=== PATIENT | female | born 1970 | race Caucasian/White ===

== ENCOUNTER 2020-10-22 10:09 | Emergency (ER) | payer BC, SELFPAY ==
[2020-10-22 10:19] VITALS: BP 132/85; PULSE 108; RESP 16; TEMP 37.1; O2SAT 98
[2020-10-22 10:22] VITALS: BP 132/85; PULSE 108; RESP 16; TEMP 37.1; O2SAT 98
--- NOTE | 2020-10-22 10:28 | ED.SOB ---
HPI - SOB/Dyspnea General Chief Complaint: Shortness of Breath/Dyspnea Stated Complaint: difficult breathing Source: patient and RN notes reviewed Limitations: no limitations History of Present Illness HPI Narrative: The overweight unvaccinated patient, a non-smoker/nondrinker with a history of RAD, presents with shortness of breath. Patient states she has about 1/2-week, 3-day history of increasing asthma symptoms. She reports her baseline inhaler use is about once a month now she has been using it daily-as it sometimes worsens on a seasonal/yearly basis. No fever, sputum changes, loss of taste/smell, CP, vomiting/diarrhea, rash, calf pain/edema, nor noncompliance [reports she is on Symbicort, albuterol-not DuoNeb]. Her last steroids were about a year ago, and she is never been hospitalized for this. She has no known recent chest x-ray, patient requests refill of nebulizers. Related Data Home Medications Medication Instructions Recorded Confirmed amlodipine 10/22/20 budesonide-formoterol [Symbicort] INHALATION 10/22/20 bupropion HCl mg PO 10/22/20 ergocalciferol (vitamin D2) 10/22/20 escitalopram oxalate mg 10/22/20 hydrochlorothiazide 10/22/20 ipratropium-albuterol [Combivent INHALATION 10/22/20 Respimat] levocetirizine mg 10/22/20 losartan 10/22/20 montelukast mg 10/22/20 omeprazole 10/22/20 Allergies Allergy/AdvReac Type Severity Reaction Status Date / Time Sulfa (Sulfonamide Allergy Unknown Verified 08/20/10 09:21 Antibiotics) sulfamethoxazole Allergy Unknown RASH Verified 02/03/19 18:16 ADHESIVE BANDAGE Allergy Severe BANDAIDS= Uncoded 02/03/19 18:16 SKIN BLISTERS OPIOIDS AdvReac Intermediate VOMITING Uncoded 06/09/18 12:34 Review of Systems Review of Systems: Narrative: General/Constitutional: No weight loss,fever Eyes: N0: Redness,discharge Ears/Nose/Throat: No: Epistaxis,ear discharge Respiratory: Denies: Hemoptysis Gastrointestinal: No Vomiting, Bleeding-rectal Skin: No Lumps, eruption Neurologic: No Focal Weakness,Sz Hematologic: Denies: Petechiae/Purpura Psychiatric: No: Suicida ideationl All Other Systems: Reviewed and Negative [facility] Family History Family History (Updated 12/22/15 @ 23:19 by DOCTOR UNKNOWN) Mother Family history of bipolar disorder Family history of diabetes mellitus in first degree relative Father Hypertension Social History Social History Smoking end date: 05/26/88 Alcohol intake: never Comments At time of signature, agree with nursing past medical, surgical, social and family history. There is no relevant family history pertinent to the presenting complaint Exam Narrative: Exam Narrative: General Appearance: Well appearing, No distress EYE: PERRLA, Conjunctiva clear Ears: External ear normal Nose: Normal nose Mouth/Throat: Normal appearing, Normal lips Neck: Supple Respiratory: Airway patent, No respiratory distress, mild decreased BS at bases with fine expiratory wheeze- only on forced expiration Cardiovascular: RRR Abdomen: Soft, Non-tender, No massess, No organomegaly Musculoskeletal: Full ROM Skin: Warm, Dry Neurological: A&O x3, CN II-X intact Psychiatric: Normal mood, Normal affect Course Vital Signs Vital signs: Vital Signs Temperature 98.7 F 10/22/20 10:19 Pulse Rate 108 H 10/22/20 10:19 Respiratory Rate 16 10/22/20 10:19 Blood Pressure 132/85 10/22/20 10:19 Pulse Oximetry 98 10/22/20 10:19 Temperature 98.7 F 10/22/20 10:22 Pulse Rate 108 H 10/22/20 10:22 Respiratory Rate 16 10/22/20 10:22 Blood Pressure 132/85 10/22/20 10:22 Pulse Oximetry 98 10/22/20 10:22 MDM - SOB/Dyspnea Lab Data Labs: Lab Results 10/22/20 Range/Units 10:25 POC SARS CoV-2 Ag Negative (Negative) Discharge Plan Discharge Clinical Impression: Asthma exacerbation Qualifiers: Asthma severity: mild Asthma persistence: intermittent Qualified Code(s): Martín
[2020-10-22] MEDS: predniSONE 20 MG TABLET 80 MG PO (10:36)
== END 2020-10-22 10:46 | disposition home or self-care (01) ==
PROVIDERS: Emergency Provider Emergency Medicine; PCP Physician Assistant
DX: J45.21 Mild intermittent asthma with (acute) exacerbation (principal); Z20.822 Contact with and (suspected) exposure to COVID-19; I10 Essential (primary) hypertension; K21.9 Gastro-esophageal reflux disease without esophagitis; M19.90 Unspecified osteoarthritis, unspecified site
CPT/HCPCS: 87426; 99213; C9803; G0463; J7512

== ENCOUNTER 2020-11-29 11:00 | Outpatient (CLI) | payer BC, SELFPAY ==
[2020-11-29 11:48] LABS: Basophils Absolute Auto 0.1 K/mm3 (0.0-0.1); Basophils Percent Auto 0.7 % (0.2-1.2); Eosinophils Absolute Auto 0.2 K/mm3 (0-0.3); Eosinophils Percent Auto 2.5 % (0-4.4); Hematocrit 36.7 % (37.0-47.0); Hemoglobin 11.4 g/dL (12.0-15.0); Immature Granulocyte Absolute 0.05 K/mm3 (0.00-0.031); Immature Granulocyte Percent A 0.6 % (0-0.5); Lymphocytes Absolute Auto 1.79 K/mm3 (0.9-3.2); Mean Corpuscular HGB Conc 31.1 g/dl (32-36); Mean Corpuscular Hemoglobin 27.5 pg (26-34); Mean Corpuscular Volume 88.4 fl (80-100); Mean Platelet Volume 9.3 fl (7.4-10.4); Monocytes Absolute Auto 0.7 K/mm3 (0.1-0.6); Monocytes Percent Auto 7.9 % (2.6-8.5); Neutrophils Absolute Auto 6.1 K/mm3 (1.3-6.7); Neutrophils Percent Auto 68.3 % (45.5-73.1); Platelet Count Result 419 k/mm3 (150-375); Red Blood Count 4.15 M/mm3 (4.2-5.4); Red Cell Distribution Width 17.4 % (11.5-14.5); White Blood Count 8.9 K/mm3 (4.5-10.0)
[2020-11-29 11:49] LABS: Add Urine Microscopic? NO; Appearance Urine Clear (Clear); Bilirubin Urine Negative (Negative); Blood Urine Negative (Negative); Color Urine Yellow (Yellow); Glucose Urine UA Negative (Negative); Ketones Urine Negative (Negative); Leukocyte Esterase Ur Negative LEU/UL (Negative); Nitrate Urine Negative (Negative); Protein Urine Negative (Negative); Specific Grav Ur 1.013 (1.001-1.035); Urobilinogen Urine Negative mg/dL (<2.0)
[2020-11-29 12:00] LABS: Hemoglobin A1C 5.6 % (<5.7)
[2020-11-29 12:02] LABS: Rheumatoid Factor < 8.6 IU/ML (<12)
[2020-11-29 12:03] LABS: Alanine Aminotransferase 19 U/L (4-35); Albumin Level 4.4 g/dL (3.5-5.1); Alkaline Phosphatase 84 U/L (38-126); Anion Gap 10 mmol/L (8-16); Aspartate Amino Transferase 32 U/L (14-36); Bilirubin,Total 0.4 mg/dL (0.2-1.3); Blood Urea Nitrogen 9 mg/dL (7-17); CRP 0.8 mg/dL (<1.0); Calcium 9.4 mg/dL (8.4-10.2); Carbon Dioxide 26 mmol/L (22-30); Chloride 103 mmol/L (98-107); Cholesterol 168 mg/dL (0-200); Estimated Glomerular Filt Rate > 60; Glucose 112 mg/dL (65-105); HDL Direct 69 mg/dL; Sodium 139 mmol/L (137-145); Triglycerides 93 mg/dL (<150)
[2020-11-29 12:12] LABS: LDL Cholesterol Direct 57 mg/dL
[2020-11-29 13:06] LABS: Free T4 Free Thyroxine 0.85 ng/mL (0.78-2.19)
[2020-11-29 13:20] LABS: Erythrocyte Sedimentation Rate 24 mm/hr (0-20)
== END 2020-11-29 11:01 | disposition home or self-care (01) ==
PROVIDERS: PCP Physician Assistant; Visit Provider Physician Assistant
DX: Z79.899 Other long term (current) drug therapy (principal); Z13.220 Encounter for screening for lipoid disorders; Z13.1 Encounter for screening for diabetes mellitus
CPT/HCPCS: 36415; 80053; 80061; 81003; 83036; 84439; 84443; 85025; 85652; 86140; 86430

== ENCOUNTER 2021-08-07 11:11 | Outpatient (CLI) | payer BC, MEDICAID, SELFPAY ==
--- NOTE | ~2021-08-07 | XR_ITS ---
EXAMINATION: XR chest 2V 08/07/2021 11:47 INDICATION: Cough. Asthma. Shortness of breath. PROCEDURE: 2 view chest COMPARISON: No prior studies for comparison. FINDINGS: The lungs are clear. The cardiomediastinal silhouette is within normal limits. There are no pleural effusions. There is no pneumothorax suspected. IMPRESSION: 1: NO ACUTE CARDIOPULMONARY DISEASE. Reviewed, dictated and finalized at location B.
== END 2021-08-07 11:12 | disposition home or self-care (01) ==
LOC: ANHIMG 11:15
PROVIDERS: PCP Physician Assistant; Visit Provider Physician Assistant
DX: R05.9 Cough, unspecified (principal)
CPT/HCPCS: 71046

== ENCOUNTER 2021-09-18 01:16 | Emergency (ER) | payer BC, MEDICAID, SELFPAY ==
--- NOTE | ~2021-09-18 | XR_ITS ---
EXAMINATION: XR chest 2V DATE: 09/18/2021 02:19 INDICATION: Foreign body ingestion. TECHNIQUE: Frontal and lateral views of the chest were obtained. COMPARISON: None. FINDINGS: The chest demonstrates clear lungs without pneumonia, pleural effusion, or pneumothorax. Th e heart size is normal. Surgical clips in the right upper quadrant are likely from cholecystectomy. IMPRESSION: 1. No acute cardiopulmonary disease. Reviewed, dictated and finalized at location A.
--- NOTE | ~2021-09-18 | XR_ITS ---
EXAMINATION: XR soft tissue neck DATE: 09/18/2021 02:16 INDICATION: Foreign body sensation. TECHNIQUE: 2 views of the neck soft tissues were obtained. COMPARISON: None. FINDINGS: The adenoids, palatine tonsils, epiglottis, prevertebral soft tissues, and airway are johnny l. No radiopaque foreign body. IMPRESSION: 1. No radiopaque foreign body. Reviewed, dictated and finalized at location A.
--- NOTE | ~2021-09-18 | CT_ITS ---
EXAMINATION: CT soft tissue neck wo con DATE: 09/18/2021 02:45 INDICATION: Foreign body ingestion. TECHNIQUE: Computed tomography (CT) of the neck was performed without intravenous contrast. Automated exposure control and iterative reconstruction technique were employed. The dose-length product was 5 39.87 mGy-cm. COMPARISON: Neck radiographs 09/18/2021 FINDINGS: There are no pathologically enlarged lymph nodes. The paranasal sinuses are clear. The mast oid air cells are normal. There is moderate cervical spondylosis. IMPRESSION: 1. No radiopaque foreign body. Reviewed, dictated and finalized at location A.
[2021-09-18 01:19] VITALS: BP 163/79; PULSE 92; RESP 18; TEMP 36.7; O2SAT 100
[2021-09-18 01:47] VITALS: BP 131/90; PULSE 83; RESP 18; O2SAT 97
--- NOTE | 2021-09-18 01:53 | ED.GENADULT ---
HPI - General Adult General Chief complaint: Unspecified Stated complaint: Swallowed a soda tab Time Seen by Provider: 09/18/21 01:48 Source: patient Mode of arrival: ambulatory Limitations: no limitations History of Present Illness HPI narrative: Pt swallowed tab from soda can inadvertently about 8 pm tonight. Pt says it feels like it is stuck in her throat and is now more sharp and painful than it was after she tried eating a banana and it felt like it moved. Location: neck Radiation: non-radiation Severity: moderate Quality: sharp Pain Consistency: constant Relieving factors: none Exacerbating factors: eating Associated symptoms: denies other symptoms Related Data Home Medications Medication Instructions Recorded Confirmed amlodipine 10/22/20 budesonide-formoterol [Symbicort] INHALATION 10/22/20 bupropion HCl mg PO 10/22/20 ergocalciferol (vitamin D2) 10/22/20 escitalopram oxalate mg 10/22/20 hydrochlorothiazide 10/22/20 ipratropium-albuterol [Combivent INHALATION 10/22/20 Respimat] levocetirizine mg 10/22/20 losartan 10/22/20 montelukast mg 10/22/20 omeprazole 10/22/20 Allergies Allergy/AdvReac Type Severity Reaction Status Date / Time Sulfa (Sulfonamide Allergy Unknown Rash Verified 09/18/21 01:22 Antibiotics) sulfamethoxazole Allergy Unknown RASH Verified 09/18/21 01:22 ADHESIVE BANDAGE Allergy Severe BANDAIDS= Uncoded 09/18/21 01:22 SKIN BLISTERS OPIOIDS AdvReac Intermediate VOMITING Uncoded 09/18/21 01:22 Review of Systems Review of Systems: All systems reviewed & are unremarkable except as noted in HPI and below [facility] Family History Family History (Updated 12/22/15 @ 23:19 by DOCTOR UNKNOWN) Mother Family history of bipolar disorder Family history of diabetes mellitus in first degree relative Father Hypertension Social History Social History Smoking end date: 05/26/88 Alcohol intake: never Exam Const: General: cooperative, healthy appearing, comfortable and no acute distress Orientation/consciousness: patient oriented x3 Limitations: no limitations HENMT: Mouth: Yes Normal oral and palatal mucosa present Neck: Neck: normal visual inspection, full ROM and supple Chest: Chest palpation & inspection: normal inspection of the chest Resp: Effort & Inspection: normal respiratory effort and able to speak in complete sentences Auscultation: clear to auscultation bilaterally Cardio: Rate: regular rate Rhythm: regular rhythm GI: Inspection: normal to inspection GI Palp: Yes Soft to palpation Auscultation: normal bowel sounds Skin: General skin exam: normal color Neuro: General: patient oriented x3 and moves all extremities Cognition (Neuro): normal cognition Speech: normal speech Extrem: General: normal to inspection Psych: Appearance: grossly normal Mental Status: mental status grossly normal Speech and movement: Normal speech and movement present Affect: normal affect Attitude: cooperative Thought process: Normal thought process present Course Vital Signs Vital signs: Vital Signs Temperature 98.1 F 09/18/21 01:19 Pulse Rate 92 09/18/21 01:19 Respiratory Rate 18 09/18/21 01:19 Blood Pressure 163/79 H 09/18/21 01:19 Pulse Oximetry 100 09/18/21 01:19 Temperature 98.1 F 09/18/21 01:19 Pulse Rate 82 09/18/21 04:36 Respiratory Rate 16 09/18/21 04:36 Blood Pressure 137/81 09/18/21 04:36 Pulse Oximetry 100 09/18/21 04:36 Medical Decision Making Vital Signs Vital Signs: Vital Signs Temperature 98.1 F 09/18/21 01:19 Pulse Rate 92 09/18/21 01:19 Respiratory Rate 18 09/18/21 01:19 Blood Pressure 163/79 H 09/18/21 01:19 Pulse Oximetry 100 09/18/21 01:19 Temperature 98.1 F 09/18/21 01:19 Pulse Rate 82 09/18/21 04:36 Respiratory Rate 16 09/18/21 04:36 Blood Pressure 137/81 09/18/21 04:36 Pulse Oximetry 100 09/18/21 04:36 Imaging Data My impression: n
[2021-09-18] MEDS: LIDOCAINE HCL 2% VISC SOLN 15 ML UDC PO (04:16)
[2021-09-18 04:36] VITALS: BP 137/81; PULSE 82; RESP 16; O2SAT 100
== END 2021-09-18 04:40 | disposition home or self-care (01) ==
PROVIDERS: Emergency Provider Emergency Medicine; PCP Physician Assistant
DX: S27.818A Other injury of esophagus (thoracic part), initial encounter (principal); X58.XXXA Exposure to other specified factors, initial encounter
CPT/HCPCS: 70360; 70490; 71046; 99284